=== PATIENT | female | born 1945 | race Caucasian/White ===

== ENCOUNTER 2018-02-07 10:35 | Emergency (ER) | payer OTHER ==
[2018-02-07 10:44] VITALS: TEMP 98.3; BMI 33.2
--- NOTE | 2018-02-07 11:01 | PDOC ---
History of Present Illness - General Chief Complaint: Diarrhea Stated Complaint: DIARRHEA History Source: Patient - History of Present Illness Initial Comments: 02/07/18 11:22 72 year old female with a hx of HTN, HLD, hypothyroidism, anemia presents to the ED for 4 day hx of diarrhea. She reports that she began feeling ill on Tuesday night when she felt uneasy in her stomach and subjective fevers/ chills. Tuesday morning, she had 2-3 episodes of non-bloody diarrhea that was yellow in color and watery. She reports having an accident and not being able to make it to the bathroom. She states that she had some mild associated lower abdominal cramping. Reports not having an appetite and not taking too many fluids. Associated symptoms of dizziness and some lightheadedness. She tried imodium, but it did not help her. Denies chest pain, SOB, nausea, vomiting, dysuria. PMD: Dr. Abbott Allergies: none Smoke: never Drink: never Surgeries: hysterectomy, cholecystectomy, bladder repair, tonsillectomy Past History - Past Medical History Allergies/Adverse Reactions: Allergies Allergy/AdvReac Type Severity Reaction Status Date / Time No Known Allergies Allergy Verified 02/07/18 10:38 Home Medications: Ambulatory Orders Esomeprazole Magnesium [Nexium 24Hr] 40 mg PO DAILY 12/11/14 Fenofibrate 160 mg PO DAILY 12/11/14 Icosapent Ethyl [Vascepa] 1 gm PO BID 12/11/14 Montelukast Na [Singulair -] 10 mg PO HS 12/11/14 Pravastatin Sodium [Pravachol -] 40 mg PO HS 12/11/14 Valsartan 320 mg PO DAILY 12/11/14 Aspirin [ASA -] 81 mg PO DAILY 08/02/16 Cyanocobalamin [Vitamin B12 -] 1,000 mcg PO DAILY 08/02/16 Lubiprostone [Amitiza] 8 mcg PO BID 08/02/16 Metoclopramide HCl [Reglan] 5 mg PO BID 08/02/16 Cephalexin Monohydrate [Keflex -] 500 mg PO BID #14 capsule 02/07/18 Anemia: Yes COPD: No HTN: Yes Hypercholesterolemia: Yes Thyroid Disease: Yes (HYPO.) - Surgical History Abdominal Surgery: Yes Cholecystectomy: Yes - Suicide/Smoking/Psychosocial Hx Smoking History: Never smoked Have you smoked in the past 12 months: No Information on smoking cessation initiated: No Hx Alcohol Use: No Drug/Substance Use Hx: No Substance Use Type: None Hx Substance Use Treatment: No Review of Systems - Review of Systems Constitutional: Yes: Chills Respiratory: No: Cough, Shortness of Breath, Wheezing Cardiac (ROS): Yes: Lightheadedness. No: Chest Pain ABD/GI: Yes: Diarrhea, Poor Fluid Intake. No: Nausea, Rectal Bleeding, Vomiting : No: Dysuria Neurological: Yes: Weakness, Dizziness. No: Headache, Ataxia *Physical Exam - Vital Signs Last Vital Signs Temp Pulse Resp BP Pulse Ox 98.3 F 87 18 120/53 100 02/07/18 10:38 02/07/18 10:38 02/07/18 10:38 02/07/18 10:38 02/07/18 10:38 - Physical Exam General Appearance: Yes: Appropriately Dressed. No: Apparent Distress HEENT: positive: Normal Voice Respiratory/Chest: positive: Lungs Clear, Normal Breath Sounds Cardiovascular: positive: Regular Rhythm, Regular Rate, S1, S2. negative: Murmur Vascular Pulses: Femoral (R): 2+, Femoral (L): 2+, Carotid (R): 2+, Carotid (L) : 2+, Dorsalis-Pedis (R): 2+, Doralis-Pedis (L): 2+ Gastrointestinal/Abdominal: positive: Normal Bowel Sounds, Soft. negative: Tender ED Treatment Course - LABORATORY CBC & Chemistry Diagram: 02/07/18 11:11 02/07/18 11:11 Medical Decision Making - Medical Decision Making 02/07/18 11:31 72 year old female with a hx of HTN, HLD, hypothyroidism, anemia presents to the ED for 4 day hx of diarrhea Differentials: most likely viral gastroenteritis, less likely bacterial gastroenteritis, cdiff, food poisoning Plan: -cbc -cmp -mag -UA -stool for cdiff -500cc NS bolus 02/07/18 11:57 -WBC elevated 13.9 -chemistry pending -signed out to Dr. Griggs *DC/Admit/Observation/Transfer Diagnosis at time of Disposition: UTI (urinary tract infection) Qualifiers: Urinary tract infection type: site unspecified Hematuria presence: without hematuria Qualified Code(s): N39.0 - Urinary tract infection, site not specified - Discharge Dispostion Disposition: HOME Condition at time of disposition: Stable - Prescriptions Prescriptions: Cephalexin Monohydrate [Keflex -] 500 mg PO BID #14 capsule - Referrals Referrals: Angel Harrington MD [Staff Physician] - - Patient Instructions Printed Discharge Instructions: DI for Urinary Tract Infection (UTI) Additional Instructions: Please return to the ER if you experience concerning or worsening symptoms including worsening abdominal pain, vomiting, or fevers. Your lab results showed that you have a urinary tract infection. We have sent a prescription for antibiotics to your pharmacy for keflex that you should take twice a day for 7 days. We talked to your primary care provider Dr. Harrington who would like you to follow up in his office in 2-3 days to discuss your ER visit and further management of your symptoms. Please call his office to make a follow up appointment. - Post Discharge Activity
[2018-02-07] MEDS ORDERED: SODIUM CHLORIDE 500 ML IV STA (11:09)
[2018-02-07 11:30] LABS: BASO % 0.3 % (0-2.0); EOS % 0.2 % (0-4.5); HEMATOCRIT 30.7 % (32.4-45.2); HEMOGLOBIN 10.1 GM/dL (10.7-15.3); LYMPH % 14.6 % (8-40); MCH 28.7 pg (25.7-33.7); MEAN PLT VOLUME 8.2 fl (7.5-11.1); MONO % 7.8 % (3.8-10.2); NEUT % 77.1 % (42.8-82.8); PLATELET COUNT 255 K/MM3 (134-434); RBC 3.53 M/mm3 (3.60-5.2); RDW 14.1 % (11.6-15.6); WHITE BLOOD COUNT 13.9 K/mm3 (4.0-10.0)
--- NOTE | 2018-02-07 11:56 | PDOC ---
Attending Attestation - Resident Resident Name: LewisAgusto - ED Attending Attestation I have performed the following: I have examined & evaluated the patient, The case was reviewed & discussed with the resident, I agree w/resident's findings & plan - HPI HPI: 02/07/18 11:54 72-year-old female with history of hypertension, no long-standing GI illnesses but distant history of cholecystectomy presents with 2 days of persistent loose/ watery nonbloody diarrhea with intermittent abdominal cramping but no persistent pain, chills but no fever. No recent travel, no recent antibiotics, no known sick contacts, no diet changes. Last colonoscopy was about 2 years ago and was within normal limits. - Physicial Exam PE: 02/07/18 11:55 Vital signs normal Dry mucosa No jaundice or pallor Abdomen is soft/nontender/nondistended, bowel sounds are normal. No guarding or rebound, no CVA tenderness. - Medical Decision Making 02/07/18 11:55 72-year-old female with diarrhea for 2 days, afebrile and well-appearing with benign abdominal exam. Presentation seems most consistent with enteritis, less likely colitis or diverticulitis or other focal infectious process. Check labs, urinalysis IV fluid rehydration No indication for emergent imaging at this time Reassess 02/07/18 13:30 much improved after fluids, ambulating comfortably and steadily. slight elevated wbc, Cr 1.2, baseline anemia. UA with elevated WBC and Leuk. Treated with abx, culture sent. discussed with Dr. Harrington, agrees with d/c plan and prompt office f/u.
[2018-02-07 12:31] LABS: URINE APPEARANCE CLOUDY; URINE BILIRUBIN NEGATIVE (<2.0 mg/dL); URINE BLOOD 1+ (NEGATIVE); URINE COLOR DKYELLOW; URINE GLUCOSE (UA) NEGATIVE (NEGATIVE); URINE KETONE NEGATIVE (NEGATIVE); URINE NITRITE NEGATIVE (NEGATIVE); URINE PROTEIN NEGATIVE (NEGATIVE); URINE UROBILINOGEN NEGATIVE mg/dL (0.2-1.0)
[2018-02-07 12:32] LABS: ALBUMIN 3.6 g/dl (3.4-5.0); ANION GAP 9 (8-16); BILIRUBIN,TOTAL 0.5 mg/dL (0.2-1.0); CALCIUM 8.6 mg/dL (8.5-10.1); CHLORIDE 102 mmol/L (98-107); CO2 24 mmol/L (21-32); CREATININE 1.2 mg/dL (0.55-1.02); GLUCOSE,RANDOM 129 mg/dL (74-106); MAGNESIUM 1.9 mg/dL (1.8-2.4); POTASSIUM 3.2 mmol/L (3.5-5.1); SGPT/ALT 46 U/L (12-78); SODIUM 135 mmol/L (136-145)
[2018-02-07 12:34] LABS: URINE LEUK ESTERASE 3+ (NEGATIVE)
[2018-02-07 12:37] LABS: EPI CELLS MANY /HPF (FEW); URINE BACTERIA MODERATE /hpf (NONE SEEN)
[2018-02-07] MEDS ORDERED: POTASSIUM CHLORIDE TABS 20 MEQ TABLET.ER (FP) PO ONE ×2 (13:02→13:12)
[2018-02-07] MEDS ORDERED: CEPHALEXIN MONOHYDRATE 500 MG CAPSULE (UD) PO ONE (13:02)
[2018-02-07] MEDS ORDERED: CEPHALEXIN MONOHYDRATE 500 MG CAPSULE (UD) ONE (13:11)
[2018-02-07 13:13] LABS: ALK PHOS 54 U/L (45-117); BLOOD UREA NITROGEN 17 mg/dL (7-18); SGOT/AST 33 U/L (15-37)
--- NOTE | 2018-02-07 13:19 | PDOC ---
*Physical Exam - Vital Signs Last Vital Signs Temp Pulse Resp BP Pulse Ox 98.3 F 87 18 120/53 100 02/07/18 10:38 02/07/18 10:38 02/07/18 10:38 02/07/18 10:38 02/07/18 10:38 - Physical Exam Comments: 02/07/18 13:19 General Appearance: Nourished. No Apparent Distress HEENT: EOMI, CATHERINE. No Pharyngeal Erythema, Tonsillar Exudate, Tonsillar Erythema Neck: No Cervical Lymphadenopathy Respiratory/Chest: Lungs Clear, Normal Breath Sounds. No Crackles, Rales, Rhonchi, Wheezing Cardiovascular: Regular Rhythm, Regular Rate. No Murmur, Gallops, Rubs Gastrointestinal/Abdominal: Normal Bowel Sounds, Soft. No Guarding, Rebound, Tenderness Musculoskeletal: No CVA Tenderness Extremity: Normal Capillary Refill Integumentary: Normal Color, Dry, Warm Neurologic: Fully Oriented, Alert, Normal Mood/Affect, Normal Response, ED Treatment Course - LABORATORY CBC & Chemistry Diagram: 02/07/18 11:11 02/07/18 11:11 - ADDITIONAL ORDERS Additional order review: Laboratory Results 02/07/18 02/07/18 12:00 11:11 Sodium 135 L Potassium 3.2 L Chloride 102 Carbon Dioxide 24 Anion Gap 9 Creatinine 1.2 H Creat Clearance w eGFR 44.04 Random Glucose 129 H Calcium 8.6 Magnesium 1.9 Total Bilirubin 0.5 D ALT 46 Total Protein 7.0 Albumin 3.6 Urine Color Dkyellow Urine Appearance Cloudy Urine pH 5.0 Ur Specific [place] 1.011 Urine Protein Negative Urine Glucose (UA) Negative Urine Ketones Negative Urine Blood 1+ H Urine Nitrite Negative Urine Bilirubin Negative Urine Urobilinogen Negative Ur Leukocyte Esterase 3+ H Urine WBC (Auto) 50 Urine RBC (Auto) 17 Ur Epithelial Cells Many Urine Bacteria Moderate 02/07/18 11:11 RBC 3.53 L MCV 87.0 MCHC 33.0 RDW 14.1 MPV 8.2 Neutrophils % 77.1 D Lymphocytes % 14.6 D Monocytes % 7.8 Eosinophils % 0.2 D Basophils % 0.3 - Medications Given in the ED: ED Medications Discontinued Medications Generic Name Dose Route Start Last Admin Trade Name Freq PRN Reason Stop Dose Admin Sodium Chloride 500 mls @ 500 mls/hr 02/07/18 11:09 02/07/18 11:32 Normal Saline - IV 02/07/18 12:08 500 mls/hr ASDIR STA Administration Potassium Chloride 40 meq 02/07/18 13:02 02/07/18 13:16 K-Dur - PO 02/07/18 13:03 40 meq ONCE ONE Administration Progress Note - Progress Note Progress Note: The patient is a 72 year old female who presents for evaluation of nausea, diarrhea. Likely a gastroenteritis. The patient is pending a cmp and ua for further evaluation. Medical Decision Making - Medical Decision Making 02/07/18 13:20 cmp demonstrates a potassium of 3.2. UA demonstrates positive leuk esterase and elevated wbc consistent with a UTI. The patient reports some improvement in her symptoms. We will treat the patient with keflex and discharge the patient home with primary care provider follow up. We discussed the results, plan, and return precautions with the patient who voiced understanding and is agreeable with the plan. *DC/Admit/Observation/Transfer Diagnosis at time of Disposition: UTI (urinary tract infection) Qualifiers: Urinary tract infection type: site unspecified Hematuria presence: without hematuria Qualified Code(s): N39.0 - Urinary tract infection, site not specified - Discharge Dispostion Disposition: HOME Condition at time of disposition: Stable Decision to Admit order: No - Prescriptions Prescriptions: Cephalexin Monohydrate [Keflex -] 500 mg PO BID #14 capsule - Referrals Referrals: Angel Harrington MD [Staff Physician] - - Patient Instructions Printed Discharge Instructions: DI for Urinary Tract Infection (UTI) Additional Instructions: Please return to the ER if you experience concerning or worsening symptoms including worsening abdominal pain, vomiting, or fevers. Your lab results showed that you have a urinary tract infection. We have sent a prescription for antibiotics to your pharmacy for keflex that you should take twice a day for 7 days. We talked to your primary care provider Dr. Harrington who would like you to follow up in his office in 2-3 days to discuss your ER visit and further management of your symptoms. Please call his office to make a follow up appointment. - Post Discharge Activity
[2018-02-07 13:24] VITALS: BP 130/61; PULSE 79
== END 2018-02-07 15:07 | disposition home or self-care (01) ==
LOC: JER 10:35
PROC: 3E0337Z Introduction of Electrolytic and Water Balance Substance into Peripheral Vein, Percutaneous Approach (ICD-10-PCS; principal; 2018-02-07)
DX: N39.0 Urinary tract infection, site not specified (principal); I10 Essential (primary) hypertension; E78.5 Hyperlipidemia, unspecified; E03.9 Hypothyroidism, unspecified
CPT/HCPCS: 36415; 80053; 81003; 81015; 83735; 85025; 87086; 87324; 87449; 96360; 99283-25